=== PATIENT | female | born 1960 | race Caucasian/White ===

== ENCOUNTER 2021-02-06 08:08 | Outpatient (REF) | payer BC, SELFPAY ==
--- NOTE | ~2021-02-06 | MM_ITS ---
EXAMINATION: MM SCREENING DIGITAL BREAST TOMOSYNTHESIS, BILATERAL CLINICAL INFORMATION: Screening. Asymptomatic. The lifetime risk of breast cancer based on the Tyrer-Cuzick Model is 9%. COMPARISON: Mammography: 07/25/2014, 06/01/2013 TECHNIQUE: Digital breast tomosynthesis is performed in both the craniocaudal and mediolateral oblique views along with computer-aided detection (CAD). Synthesized 2D images are generated from the tomosynthesis. FINDINGS: There are scattered areas of fibroglandular density (ACR BI-RADS breast composition Category b). There are no significant masses, abnormal calcifications, or other abnormalities. There is a stable nodule central 12:00 right breast mid depth similar to prior studies. The skin contours are unremarkable. No significant changes. MM/MM tomosynthesis screening BI IMPRESSION: No mammographic evidence of malignancy. ASSESSMENT: BI-RADS 2: Benign RECOMMENDATION: Routine annual mammography screening. This patient's information was entered into a reminder system with a target due date for their next mammogram.
== END 2021-02-06 08:09 | disposition home or self-care (01) ==
LOC: HO.MAMMO 08:08
PROVIDERS: Visit Provider Internal Medicine
DX: Z12.31 Encounter for screening mammogram for malignant neoplasm of breast (principal)
CPT/HCPCS: 77063; 77067

== ENCOUNTER 2022-03-10 15:20 | Outpatient (REF) | payer BC, SELFPAY ==
--- NOTE | ~2022-03-10 | MM_ITS ---
EXAMINATION: MM SCREENING DIGITAL BREAST TOMOSYNTHESIS, BILATERAL CLINICAL INFORMATION: Screening. Asymptomatic. Family history breast cancer, sister. The lifetime risk of breast cancer based on the Tyrer-Cuzick Model is 9%. COMPARISON: Mammography: 02/06/2021, 07/25/2014 TECHNIQUE: Digital breast tomosynthesis is performed in both the craniocaudal and mediolateral oblique views along with computer-aided detection (CAD). Synthesized 2D images are generated from the tomosynthesis. FINDINGS: There are scattered areas of fibroglandular density (ACR BI-RADS breast composition Category b). There are no significant masses, abnormal calcifications, or other abnormalities. Nodule central 12:00 right breast mid depth is similar to prior exams. No developing density or architectural abnormality. The axilla and skin contours are unremarkable. MM/MM tomosynthesis screening BI IMPRESSION: No mammographic evidence of malignancy. ASSESSMENT: BI-RADS 2: Benign RECOMMENDATION: Routine annual mammography screening. This patient's information was entered into a reminder system with a target due date for their next mammogram.
== END 2022-03-10 15:21 | disposition home or self-care (01) ==
LOC: HO.MAMMO 15:20
PROVIDERS: PCP Internal Medicine; Visit Provider Internal Medicine
DX: Z12.31 Encounter for screening mammogram for malignant neoplasm of breast (principal)
CPT/HCPCS: 77063; 77067

== ENCOUNTER 2023-03-16 15:19 | Outpatient (REF) | payer BC, SELFPAY | END 2023-03-16 15:20 | disposition home or self-care (01) | LOC: HO.MAMMO 15:19 | PROVIDERS: PCP Internal Medicine; Visit Provider Internal Medicine | DX: Z12.31 Encounter for screening mammogram for malignant neoplasm of breast (principal) | CPT/HCPCS: 77063; 77067 ==

== ENCOUNTER → 2023-03-16 15:30 | Outpatient (BNV) | payer BC, SELFPAY | PROVIDERS: PCP Internal Medicine; Visit Provider Radiology Diagnostic Radiology | DX: Z12.31 Encounter for screening mammogram for malignant neoplasm of breast (principal) | CPT/HCPCS: 77063; 77067 ==

== ENCOUNTER 2024-06-01 09:31 | Outpatient (REF) | payer OTHER, SELFPAY ==
--- OUTSIDE RECORDS SUMMARY | 2024-06-01 09:37 | XMS_ITS | Continuity of Care Document ---
Author Organization [facility] Address [address] [place] [address]- Care Team Providers Care Electronic Equipment Repairer Name Role Phone Francis Westbrook DO Primary Care Physician Encounter [facility] [id number] Date(s): 04/27/24 - 05/04/24 [facility] [address] [place] [address]- Encounter Diagnosis Multinodular thyroid(Discharge Diagnosis) - 04/27/24 Family history of malignant neoplasm of breast(Discharge Diagnosis) - 04/27/24 Adenomatous colon polyp(Discharge Diagnosis) - 04/27/24 B12 deficiency(Discharge Diagnosis) - 04/27/24 Insomnia(Discharge Diagnosis) - 04/27/24 Attending Physician: Sonya Mendez NP Encounter Type: Office Visit Allergies, Adverse Reactions, Alerts No Known Allergies Immunizations Given and Recorded Vaccine Date Status Refusal Reason influenza virus vaccine, inactivated 04/15/22 [place] rded SARS-CoV-2 (COVID-19) mRNA BNT-162b2 vac 11/07/20 Recorded SARS-CoV-2 (COVID-19) mRNA BNT-162b2 vac 10/12/20 Recorded Medications latanoprost 0.005% ophthalmic solution 1 drops, Eyes, Both, Daily in PM, # 2.5 mL, 0 Refills, Maintenance, 04/27/24 8:27:00 AM EST, Solution, Partial fill upon patient request if the prescription is for a schedule II opioid drug. Start Date: 04/27/24 Status: Ordered Quantity: 2.5 Unit: mL Repeat number: 1 Multi Vitamin+ 0 Refills, Maintenance, 09/01/21 9:59:00 AM EDT, Partial fill upon patient request if the prescription is for a schedule II opioid drug. Start Date: 09/01/21 Status: Ordered Repeat number: 1 Vitamin B12 = 5,000 mcg, 0 Refills, Maintenance, 04/27/24 8:26:00 AM EST, Partial fill upon patient request if the prescription is for a schedule II opioid drug. Start Date: 04/27/24 Status: Ordered Repeat number: 1 Problem List Condition Confirmation Course Effective Dates Status Health St atus Informant Adenomatous colon polyp Confirmed Active B12 deficiency Confirmed Active Family history of malignant neoplasm of breast Confirmed Active Insomnia Confirmed Active Multinodular thyroid Confirmed Active Diagnosis Diagnosis Type Effective Dates Health Status Clinical Service Informant Multinodular thyroid Discharge Diagnosis 04/27/24 Family history of malignant neoplasm of breast Discharge Diagnosis 04/27/24 Adenomatous colon polyp Discharge Diagnosis 04/27/24 B12 deficiency Discharge Diagnosis 04/27/24 Insomnia Discharge Diagnosis 04/27/24 Procedures Procedure Date Related Diagnosis Body Site Status R great toe arthritis procedure 2011 Completed Abdominal hysterectomy 2001 Completed Tonsillectomy 1981 Completed Appendectomy 1966 Completed 1TAH BSO Vital Signs Most recent to oldest [Reference Range]: 1 2 Height 155.5 cm (04/27/24 8:30 AM) 155.5 cm (04/27/24 8:17 AM) Weight 67.4 kg (04/27/24 8:17 AM) Oxygen Saturation [94-100 %] 96 % (04/27/24 8:17 AM) Pulse Rate [55-90 bpm] 82 bpm (04/27/24 8:17 AM) Body Mass Index [18.5-24.99 kg/m2] 27.87 kg/m2 *H* (04/27/24 8:17 AM) Blood Pressure [90-138/55-84 mm Hg] 126/ 85mm Hg (04/27/24 8:30 AM) 145/81mm Hg *H* (04/27/24 8:17 AM) Blood pressure sites Arm, left (04/27/24 8:30 AM) Arm, left (04/27/24 8:17 AM) Weight Obtained Via Standing scale (04/27/24 8:17 AM) Social History Social History Type Response Smoking Status Never smoker entered on: 10/09/14 Sex Sex Representation Female (finding) Note * Traci Cooper: PERFORM Event Display: Patient Education/Instruction Authored Date: Ambulatory Adult Visit Summary [facility] [address], [place] [id number] Name: JEFFERSON MAYO : 1960?? Visit: 04/27/2024 07:56?? Ambulatory Visit Instructions ?? Your Care Team Primary Care Provider Francis Westbrook DO? This Visit Provider Sonya Mendez NP Your Diagnosis Multinodular thyroid Family history of malignant neoplasm of breast Adenomatous colon polyp B12 deficiency Insomnia Vitals Signs Pulse Rate: 82 bpm Height: 155.5 cm Systolic Blood Pressure: 126 mm Hg Weight: 67.4 kg Diastolic Blood Pressure:??85 mm Hg??High Body Mass Index:??27.87 kg/m2??High Oxygen Saturation: 96 % Body surface area: 1.71 What to do next Follow-Up Appointments Follow Up with??Sonya Mendez NP When:??05/01/2025 07:40 AM EST Where: [address] [place] [address]- Future Orders US Soft Tissue Head/Neck, Routine, Reason for Exam: Nodules, Thyroid Nodules, Once, *Est. 04/27/24 COVID-19 (2019 Novel Coronavirus) PCR - Routine, Nose, Patient is Symptomatic, Once, 03/26/24 10:21:00 EDT, Order for Today, [facility], Swab?? TSH Rfx on Abnormal to Free T4 - Routine, Once, 04/27/24 8:48:00 EST, Order for Today, [facility], Blood?? Vitamin B12 Level - Routine, Once, 04/27/24 8:58:00 EST, Order for Today, [facility], Blood?? Medications The list below reflects the information in our records and provided by you today along with any changes made during this visit. Please continue your medications until treatment is completed or stopped by your provider. If this is different from the information you have or there are other questions,please contact the prescribing provider. What How Much When Instructions Changed Multivitamin (Multi Vitamin+) Unchanged Cyanocobalamin (Vitamin B12) 5,000 Microgram Unchanged Latanoprost Ophthalmic (latanoprost 0.005% ophthalmic solution) 1 Drops Both eyes Daily in PM ?? What How Much When Why Comments Stop Taking Fluticasone Nasal (fluticasone 50 mcg/ inh nasal spray) 1 spray(s) Nares, Both Twice a day Cough Duration: 30 Days Test Performed Below is a partial list of the tests performed during your Visit. You may have had other tests and procedures not included in this list. Please discuss all test results with your provider. TSH Rfx on Abnormal to Free T4?-- Results Pending -- Vitamin B12 Level?-- Results Pending -- Medications and Immunizations Administered Medications Given During Visit No medications given during this visit.?? Allergies (NKA means No Known Allergies) NKA Common Emergency Awareness Tips IS IT A STROKE? Act FAST and Check for these signs: FACE Does the face look uneven? ARM Does one arm drift down? SPEECH Does their speech sound strange? TIME Call at any sign of stroke ?? Heart Attack Signs Chest discomfort: Most heart attacks involve discomfort in the center of the chest and lasts more than a few minutes, or goes away and comes back. It can feel like uncomfortable pressure, squeezing, fullness or pain. Discomfort in upper body: Symptoms can include pain or discomfort in one or both arms, back, neck, jaw or stomach. Shortness of breath: With or without discomfort. Other signs: Breaking out in a cold sweat, nausea, or lightheaded. Remember, MINUTES DO MATTER. If you experience any of these heart attack warning signs, call to get immediate medical attention! ?? Smoking can increase your chances of developing chronic health problems and can cause harmful effects to other family members in your house. If you smoke, you are strongly encouraged to quit. Please call [employer] [facility] at [phone] or [phone] ([phone]) or log in to [email or web address] for referrals to smoking cessation programs. ?? The National Suicide Prevention Hotline is available 11/01 if you or someone you know needs to find a reason to keep living. By calling 5-364-960-talk (6634) you'll be connected to a skilled, trained counselor at a crisis center in your area. [facility] You can view and manage your care through the patient portal or by using a health care marlys of your choosing. [employer] is a website that allows you to securely view your medical information including your hospital discharge summary, office visit summaries, medications and follow-up visits. You can also request appointments, renew medications, and request access to your medical information using a health care marlys of your choosing, or just ask a question. You can enroll at [email or web address] or register during your next office visit. [facility], in keeping with [facility] guidance, no longer requires face masks for staff, patientsor visitors in most situations. Similiar to time spent indoors at other locations, there is the chance that you were exposed to repiratory viruses during your time with us (such as flu or COVID-19). If you develop symptoms concerning for a viral respiratory infection, please seek testing (and treatment if indicated) from your medical provider or home test kit. ?? Disclaimer: The information provided is of a general nature and is intended to be used in conjunction with the recommendations and advice of your health care practitioner. Every effort has been made to ensure that the information provided is accurate and complete at the time it is provided to you however, as your needs change, or, as new information becomes available, different or additional instructions may be required. ?? If you have questions, please consult with your primary care provider or pharmacist, as appropriate. This information is not intended to serve as substitution for assessment and evaluation by a qualified health care provider. If you do not have a primary care provider, you may find a [facility] provider by calling [facility] at [phone]. Patient Care team information Care Team Personnel Name: Francis Westbrook DO Position: [facility] Physician - Primary Care Member Role: PCP Address: [address] [place] [address] Telecom: Care Team Related Persons Name: GREGORY MAYO Name: GREGORY MAYO Insurance Providers Guarantor name: JEFFERSON MARIA ESTHER Health Plan Information #: 1 Payer: [id number] Member Number: [id number] Policy Number: NA Group Number: NA Health Plan Information #: 2 Payer: [facility] Member Number: [id number] Policy Number: NA Group Number: NA
--- OUTSIDE RECORDS SUMMARY | 2024-06-01 09:37 | XMS_ITS | Continuity of Care Document ---
Author Organization [facility] Address [address] [place] [address]- Care Team Providers Care Archivist Economic History Name Role Phone Francis Westbrook DO Primary Care Physician [phone] Encounter 05/09/24 - 05/16/24 [facility] [address], [address] [place] [address]- Attending Physician: Sonya Mendez NP Admitting Physician: Sonya Mendez NP Referring Physician: Bev Mendez MD Encounter Type: OutPatient One Time Allergies, Adverse Reactions, Alerts No Known Allergies [...] Insomnia Confirmed Active Multinodular thyroid Confirmed Active Results Radiology Reports * Exam Date Time Procedure Performing Provider Status 05/09/24 10:57 AM US Soft Tissue Head/Neck Brenden Rosales; Auth (Verified) Notes: (US Soft Tissue Head/Neck) Reason For Exam: Thyroid Nodules;Nodules RESULT: US Soft Tissue Head/Neck US Soft Tissue Head/Neck Reason: Nodules; Thyroid Nodules COMPARISON: 10/18/2023. FINDINGS: RIGHT THYROID LOBE: 5.5 x 2.4 x 2.3 cm, volume 15.9 cc. Nodule findings detailed below. Surrounding thyroid demonstrates homogeneous echotexture. Normal parenchymal vascularity. Nodule #1: Mid-gland, 2.7 x 2.2 x 2.3 cm, predominately solid, isoechoic, not [id number], ill-defined margin, no echogenic foci. TI-RADS Category 3. Slightly increased in size from prior (previously 2.4 x 2.0 x 2.3 cm). Nodule #2: Lower pole, 1.1 x 0.9 x 1.2 cm, solid, mildly hypoechoic, not [id number], ill-defined margin, no echogenic foci. TI-RADS Category 4. Unchanged given differences in technique. LEFT THYROID LOBE: 4.9 x 1.5 x 1.5 cm, volume 5.8 cc. Normal homogeneous echotexture. Normal parenchymal vascularity. Scattered subcentimeter nodules which do not meet TI-RADS criteria for imaging follow-up. ISTHMUS: Thickness: 0.3 cm. IMPRESSION: Right mid-gland TI-RADS Category 3 nodule has slightly increased in size from prior, now measuring up to 2.7 cm and meeting criteria for FNA per guidelines below. Unchanged right lower pole 1.2 cm TI-RADS Category 4 nodule. Follow-up ultrasound in 1 year is recommended per guidelines below. TI-RADS 2017 reference: Tessler FN, Corinne WD, Houston EG, et al. ACR Thyroid Imaging, Reporting and Data System (TI-RADS): White Paper of the ACR TI-RADS Committee. J Am Nabil Radiol. Volume 14, Issue 5 , 587 - 595. https://doi.org/10.1016/j.jacr.2017.01.046 ACR TI-RADS recommendations: TR1 and TR2: No FNA or follow-up. TR3: FNA if greater than 2.4 cm, follow-up if 1.5-2.4 cm in 1, 3 and 5 years. TR4: FNA if greater than 1.4 cm, follow-up if 1.0-1.4 cm in 1, 2, 3 and 5 years. TR5: FNA if greater than 0.9 cm, follow-up if 0.5-0.9 cm every year for 5 years. TI-RADS calculator: [email or web address].com/ WSN: [id number] Ordering Physician: Sonya Mendez Dictated By: Brian Inman MD Dictated Date/Time: 05/09/24 1:34 pm Reviewed By: Brian Inman MD Signed By: Brian Inman MD Signed Date/Time: 05/09/24 1:34 pm Transcribed By: SUSAN Transcribed Date/Time: 05/09/24 12:42 pm Social History Social History Type Response Smoking Status Never smoker entered on: 10/09/14 Sex Sex Representation Female (finding) Patient Care team information Care Team Personnel Name: Francis Westbrook DO Position: S Physician - Primary Care Member Role: PCP Address: [address] [place] [address] Telecom: Care Team Related Persons Name: GREGORY MAYO Name: GREGORY MAYO Insurance Providers Guarantor name: JEFFERSON MAYO Health Plan Information #: 1 Payer: [employer] Member Number: [id number] Policy Number: NA Group Number: NA Health Plan Information #: 2 Payer: [employer] Member Number: [id number] Policy Number: NA Group Number: NA
== END 2024-06-01 09:32 | disposition home or self-care (01) ==
LOC: HO.MAMMO 09:31
PROVIDERS: PCP Nurse Practitioner Family; Visit Provider Nurse Practitioner Family
DX: Z12.31 Encounter for screening mammogram for malignant neoplasm of breast (principal)
CPT/HCPCS: 77063; 77067

== ENCOUNTER → 2024-06-01 09:45 | Outpatient (BNV) | payer OTHER, SELFPAY | PROVIDERS: PCP Nurse Practitioner Family; Visit Provider Internal Medicine | DX: Z12.31 Encounter for screening mammogram for malignant neoplasm of breast (principal) | CPT/HCPCS: 77063; 77067 ==